=== PATIENT | female | born 1970 ===

== ENCOUNTER 2017-08-03 06:50 | Inpatient (IN) | payer MEDICAID ==
[~2017-08-03] VITALS: Ht 160 cm; Wt 84.7 kg
[2017-08-03] MEDS: SODIUM CHLORIDE 0.9% 1,000 ML IV SCH ×3 (07:11→23:11)
[2017-08-03] MEDS ORDERED: CEFAZOLIN PMX 1GM/50ML 50 ML IVPB ONE (07:30)
[2017-08-03 07:33] VITALS: BP 145/70
[2017-08-03] MEDS ORDERED: LIDOCAINE 2%, 20ML ONE (07:43)
[2017-08-03] MEDS ORDERED: CEFAZOLIN 1,000 MG ONE ×2 (07:44→08:02)
[2017-08-03] MEDS ORDERED: MIDAZOLAM 1 MG/ML, 2ML ONE (07:45)
[2017-08-03] MEDS ORDERED: FENTANYL PF 100 MCG/2ML ONE ×2 (07:46→09:30)
[2017-08-03] MEDS ORDERED: CARV3.1212 PO (07:50)
[2017-08-03] MEDS ORDERED: LEVO50TA5 PO (07:50)
[2017-08-03] MEDS ORDERED: AMIO200T42 PO (07:50)
[2017-08-03] MEDS ORDERED: FOLI-17 PO (07:50)
[2017-08-03] MEDS ORDERED: PNV#1CAP17 PO (07:50)
[2017-08-03] MEDS ORDERED: MAGN400T36 PO (07:51)
[2017-08-03] MEDS ORDERED: ROCURONIUM 10 MG/ML,10ML ONE (08:02)
[2017-08-03] MEDS ORDERED: PROPOFOL 10 MG/ML, 20ML ONE (08:02)
[2017-08-03] MEDS ORDERED: PHENYLEPHRINE 10 MG/ML ONE (08:02)
[2017-08-03] MEDS ORDERED: ONDANSETRON 2MG/ML, 2ML ONE ×2 (08:02→09:30)
[2017-08-03] MEDS ORDERED: SUCCINYLCHOLINE 20 MG/ML, 10ML ONE (08:02)
[2017-08-03] MEDS ORDERED: DEXAMETHASONE 4 MG/ML, 1ML ONE (08:02)
[2017-08-03] MEDS ORDERED: ACETAMINOPHEN 325 MG TABLET PO PRN (09:30)
[2017-08-03] MEDS ORDERED: OXYcodone 5 MG/5 ML ORAL.SOL UDC PO PRN (09:30)
[2017-08-03] MEDS ORDERED: PROMETHAZINE 25 MG/ML, 1ML IV PRN (09:30)
[2017-08-03] MEDS ORDERED: HYDROmorphone 1 MG/ML, 1ML IV PRN (09:30)
[2017-08-03] MEDS ORDERED: hydrALAzine 20 MG/ML, 1ML IV PRN (09:30)
[2017-08-03] MEDS ORDERED: ZOLPIDEM 5MG TABLET PO PRN (09:30)
[2017-08-03] MEDS ORDERED: MEPERIDINE/PF 25MG/0.5ML IVPush PRN (09:30)
[2017-08-03] MEDS ORDERED: ONDANSETRON 2MG/ML, 2ML IVPush PRN (09:30)
[2017-08-03] MEDS ORDERED: MIDAZOLAM 1 MG/ML, 2ML IV PRN (09:30)
[2017-08-03] MEDS ORDERED: LABETALOL 5MG/ML, 20ML IV PRN (09:30)
[2017-08-03] MEDS ORDERED: ALBUTEROL SULFATE 2.5 MG/3 ML NPPB PRN (09:30)
[2017-08-03] MEDS: FENTANYL PF 100 MCG/2ML IV PRN ×2 (09:35→09:45)
[2017-08-03] MEDS ORDERED: PROMETHAZINE 25 MG/ML, 1ML ONE (09:42)
[2017-08-03] MEDS: PLEASE ENTER ALLERGIES MC SCH ×2 (10:30→10:40)
[2017-08-03 10:45] VITALS: BP 136/88
[2017-08-03] MEDS: HYDROcodone/APAP 5/325 TABLET PO PRN ×2 (11:04→21:31)
[2017-08-03] MEDS: CEFAZOLIN PMX 1GM/50ML 50 ML IVPB SCH ×2 (12:30→21:31)
[2017-08-03 14:14] VITALS: BP 109/73
[2017-08-03 20:28] VITALS: BP 128/83
[2017-08-03] MEDS: CARVEDILOL 3.125 MG TABLET PO SCH (21:31)
[2017-08-03] MEDS: SODIUM CHLORIDE FLUSH 10ML SYR IVF SCH (21:32)
[2017-08-04 04:00] VITALS: BP 104/68
[2017-08-04] MEDS: SODIUM CHLORIDE 0.9% 1,000 ML IV SCH ×3 (07:11→23:11)
[2017-08-04 07:30] VITALS: BP 126/71
[2017-08-04] MEDS ORDERED: CARV3.1212 PO (08:13)
[2017-08-04] MEDS ORDERED: ACET325T14 PO (08:13)
[2017-08-04] MEDS: SODIUM CHLORIDE FLUSH 10ML SYR IVF SCH ×2 (09:00→21:00)
[2017-08-04] MEDS: MAGNESIUM OXIDE 400 MG TABLET PO SCH (09:23)
[2017-08-04] MEDS: HYDROcodone/APAP 5/325 TABLET PO PRN ×3 (09:23→21:33)
[2017-08-04] MEDS: CARVEDILOL 3.125 MG TABLET PO SCH ×2 (09:23→21:33)
[2017-08-04] MEDS: LEVOTHYROXINE 50 MCG TABLET PO SCH (09:23)
[2017-08-04] MEDS ORDERED: CEFAZOLIN PMX 1GM/50ML 50 ML IVPB ONE (11:30)
[2017-08-04 14:01] VITALS: BP 124/82
[2017-08-04] MEDS ORDERED: CEFAZOLIN PMX 1GM/50ML 50 ML ONE (14:11)
[2017-08-04] MEDS ORDERED: MIDAZOLAM 1 MG/ML, 2ML ONE (14:11)
[2017-08-04] MEDS ORDERED: FENTANYL PF 100 MCG/2ML ONE (14:11)
[2017-08-04] MEDS ORDERED: LIDOCAINE 2%, 20ML ONE (14:11)
[2017-08-04] MEDS ORDERED: CEFAZOLIN 1,000 MG ONE (14:12)
[2017-08-04 19:48] VITALS: BP 135/82
[2017-08-05 00:22] VITALS: BP 114/69
[2017-08-05] MEDS: HYDROcodone/APAP 5/325 TABLET PO PRN (03:51)
[2017-08-05 06:52] VITALS: BP 123/76
[2017-08-05] MEDS: SODIUM CHLORIDE 0.9% 1,000 ML IV SCH (07:11)
[2017-08-05] MEDS: SODIUM CHLORIDE FLUSH 10ML SYR IVF SCH (09:00)
[2017-08-05] MEDS ORDERED: HYDR-3240 PO (09:00)
[2017-08-05] MEDS: MAGNESIUM OXIDE 400 MG TABLET PO SCH (09:04)
[2017-08-05] MEDS: CARVEDILOL 3.125 MG TABLET PO SCH (09:04)
[2017-08-05] MEDS: LEVOTHYROXINE 50 MCG TABLET PO SCH (09:04)
== END 2017-08-05 10:43 | disposition home or self-care (01) | DRG 227 ==
LOC: CACL 06:50 → MERGE 06:50 → ORIP 09:04 → 5SO 10:20 → OBSVTOIN 08-04 15:36 → DCLOUNGE 08-05 10:15
PROVIDERS: ADMIT Internal Medicine Cardiovascular Disease; ATTEND Internal Medicine Cardiovascular Disease
PROC: 02HK3KZ Insertion of Defibrillator Lead into Right Ventricle, Percutaneous Approach (ICD-10-PCS; 2017-08-03)
PROC: 0JH608Z Insertion of Defibrillator Generator into Chest Subcutaneous Tissue and Fascia, Open Approach (ICD-10-PCS; 2017-08-03)
PROC: 02H63KZ Insertion of Defibrillator Lead into Right Atrium, Percutaneous Approach (ICD-10-PCS; principal; 2017-08-03 08:00)
PROC: 02WA3MZ Revision of Cardiac Lead in Heart, Percutaneous Approach (ICD-10-PCS; 2017-08-04)
PROC: 4B02XTZ Measurement of Cardiac Defibrillator, External Approach (ICD-10-PCS; 2017-08-04)
DX: I49.01 Ventricular fibrillation (principal); Z86.74 Personal history of sudden cardiac arrest; E03.9 Hypothyroidism, unspecified
CPT/HCPCS: 33215; 33249; 71045; 93641; C1721; C1779; C1892; C1895; G0378; J0690; J1100; J2250; J2405; J2550; J2704; J3010; J3490; J0330; J2370

== ENCOUNTER 2020-08-11 16:39 | Emergency (ER) | payer MEDICAID ==
[~2020-08-11] VITALS: Ht 160 cm; Wt 68.4 kg
[~2020-08-11 16:39] MED LIST: ACET325T14 PO; AMIO200T42 PO; CARV3.1212 PO; FOLI1TAB32 PO; HYDR-1067 PO; LEVO50TA5 PO; MAGN400T36 PO; PNV#1CAP17 PO
--- NOTE | 2020-08-11 16:52 | NUR ---
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
--- NOTE | 2020-08-11 17:38 | NUR ---
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
--- NOTE | 2020-08-11 18:20 | NUR ---
MEDICATED PER ORDERS. SPLINT TO BE APPLIED
--- NOTE | 2020-08-11 19:26 | NUR ---
DISCHARGE INSTRUCTIONS REVIEWED WITH PATIENT. CRUTCHES ALTERED TO FIT PATIENT'S HEIGHT AND ARM LENGTH. AMBULATED WITH CRUTCHES WITHOUT ISSUE AFTER THI ALTERATION. ALL PERSONAL BELONGINGS WITH PATIENT. PATIENT AGREED FOR TREATEMENT OF PAIN WITH POIOID MEDICATION AND ACKNOWLEDGED TEACHING OF RISKS. TRANSFERRED TO LOBBY VIA
[2020-08-11 19:28] VITALS: BP 113/76
== END 2020-08-11 19:30 | disposition home or self-care (01) ==
LOC: ED 18:00
DX: S82.424A Nondisplaced transverse fracture of shaft of right fibula, initial encounter for closed fracture (principal); I10 Essential (primary) hypertension; E03.9 Hypothyroidism, unspecified; Y93.89 Activity, other specified; W01.0XXA Fall on same level from slipping, tripping and stumbling without subsequent striking against object, initial encounter; Y92.410 Unspecified street and highway as the place of occurrence of the external cause; Y99.8 Other external cause status
CPT/HCPCS: 29515; 99284

== ENCOUNTER 2020-08-15 17:09 | Emergency (ER) | payer MEDICAID ==
[~2020-08-15] VITALS: Ht 162.6 cm; Wt 68.0 kg
[2020-08-15 17:15] VITALS: BP 134/86
--- NOTE | 2020-08-15 17:40 | NUR ---
pt in bed with no signs or symptoms of acute distress noted respirations even and unlabored tech at bedside to replace splint
== END 2020-08-15 18:30 | disposition home or self-care (01) ==
LOC: ED 17:45
DX: S82.831A Other fracture of upper and lower end of right fibula, initial encounter for closed fracture (principal); F17.200 Nicotine dependence, unspecified, uncomplicated; X58.XXXA Exposure to other specified factors, initial encounter; Y93.89 Activity, other specified; Y92.89 Other specified places as the place of occurrence of the external cause; Y99.8 Other external cause status
CPT/HCPCS: 29505; 29515; 99283